=== PATIENT | male | born 1970 | race Caucasian/White ===

== ENCOUNTER → 2017-11-25 15:51 | Outpatient (CLI) | payer OTHER, SELFPAY ==
--- NOTE | 2017-11-25 16:02 | DI.MRI.S_ITS ---
PROCEDURE: MR SHOULDER RT WO CON INDICATIONS: CHRONIC BILAT SHOULDER PAIN TECHNIQUE: Noncontrast oblique coronal T2 fast spin echo with fat saturation, oblique sagittal T1 spin echo and T2 fast spin echo with fat saturation, axial T1 spin echo and T2 fast spin echo with fat saturation through the shoulder. COMPARISON: None. FINDINGS: Image quality: Excellent. Rotator cuff: The infraspinatus and subscapularis tendons appear intact throughout. There is a wide full-thickness supraspinatus rotator cuff tear but the supraspinatus muscle does not appear atrophic. No rotator cuff muscle atrophy on sagittal images. Bones and bursae: No bone marrow contusions or fractures. There is moderately severe acromioclavicular joint degeneration with fibrous and osseous hypertrophy impinging inferiorly against the expected normal course of the supraspinatus tendon. The acromion demonstrates conventional anatomy, without an os acromiale. No pathologic subacromial-subdeltoid or subcoracoid bursal fluid is present. Capsule and soft tissues: In the absence of intra-articular contrast, the labrum and glenohumeral ligaments appear intact. The long head of the biceps tendon demonstrates normal location and morphology. The rotator interval appears normal, without fibrosis. The coracohumeral ligament is normal in thickness. IMPRESSION: Wide full-thickness supraspinatus rotator cuff tear with the tendon retracted medially but the supraspinatus muscle showing no sign of atrophy. Moderately severe acromioclavicular joint osteoarthritis with fibrous and osseous hypertrophy impinging inferiorly against the normal course of the supraspinatus tendon. Dictated by: Florentin Viera M.D. on 11/25/2017 at 17:29 Approved by: Florentin Viera M.D. on 11/25/2017 at 17:31
--- NOTE | 2017-11-25 16:02 | DI.MRI.S_ITS ---
PROCEDURE: MR SHOULDER LT WO CON INDICATIONS: CHRONIC BILAT SHOULDER PAIN TECHNIQUE: Noncontrast oblique coronal T2 fast spin echo with fat saturation, oblique sagittal T1 spin echo and T2 fast spin echo with fat saturation, axial T1 spin echo and T2 fast spin echo with fat saturation through the shoulder. COMPARISON: [facility], MR, MR SHOULDER RT WO CON, 11/25/2017, 16:22. FINDINGS: Image quality: Excellent. Rotator cuff: The supraspinatus, infraspinatus, and subscapularis tendons appear intact throughout the supraspinatus tendon shows abnormal internal fluid signal and striated irregularity along the articular undersurface of the lateral supraspinatus course, with an appearance suggestive of partial thickness tear as the underlying cause. No rotator cuff muscle atrophy on sagittal images. Bones and bursae: No bone marrow contusions or fractures. There is moderately severe acromioclavicular joint degeneration with fibrous and osseous hypertrophy impinging inferiorly against the normal course of the edematous supraspinatus tendon.. The acromion demonstrates conventional anatomy, without an os acromiale. No pathologic subacromial-subdeltoid or subcoracoid bursal fluid is present. Capsule and soft tissues: In the absence of intra-articular contrast, the labrum and glenohumeral ligaments appear intact. The long head of the biceps tendon demonstrates normal location and morphology. The rotator interval appears normal, without fibrosis. The coracohumeral ligament is normal in thickness. IMPRESSION: Chronic impingement appears present secondary to moderately severe degenerative osteoarthritis at the acromioclavicular joint reducing fibrous and osseous hypertrophy directed exactly against the normal course of the supraspinatus tendon. The tendon itself is not disrupted but appears to contain a partial-thickness tear laterally along its articular border. Edema and thickening of the tendon more medially is consistent with chronic tendinitis. No joint effusion or intra-articular loose body is found. Mild to moderate glenohumeral joint osteoarthritis is also present. Dictated by: Florentin Viera M.D. on 11/25/2017 at 17:58 Approved by: Florentin Viera M.D. on 11/25/2017 at 18:00
== END ==
PROVIDERS: Family Provider Family Medicine; PCP Family Medicine; Visit Provider Orthopaedic Surgery
DX: M75.101 Unspecified rotator cuff tear or rupture of right shoulder, not specified as traumatic (principal); M75.42 Impingement syndrome of left shoulder; M19.012 Primary osteoarthritis, left shoulder; M19.011 Primary osteoarthritis, right shoulder
CPT/HCPCS: 73221